=== PATIENT | male | born 2000 | race African-American/Black ===

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

== ENCOUNTER 2020-02-18 23:00 | Emergency (ER) | payer OTHER ==
[~2020-02-18] VITALS: Ht 175.3 cm; Wt 122.7 kg
[2020-02-19 01:18] VITALS: BP 136/82
== END 2020-02-19 01:20 | disposition home or self-care (01) ==
LOC: M.ERS 23:00
DX: S63.592A Other specified sprain of left wrist, initial encounter (principal); F90.9 Attention-deficit hyperactivity disorder, unspecified type; W50.1XXA Accidental kick by another person, initial encounter; Y93.66 Activity, soccer; Y92.89 Other specified places as the place of occurrence of the external cause; Y99.8 Other external cause status